=== PATIENT | female | born 1995 | race Caucasian/White ===

== ENCOUNTER 2020-04-19 23:38 | Inpatient (IN) | payer BC ==
[~2020-04-19] VITALS: Ht 167.6 cm; Wt 93.6 kg
--- NOTE | 2020-04-19 23:45 | NUR ---
Pt arrived on unit ambulatory, escorted by and with complaints of possible SROM. Pt reports occasional contractions, denies any vaginal bleeding and reports normal movement. EFM and toco monitors started. Vital signs WNL. SVE by this RN / with positive amnio-trace and large amount of clear fluid on exam. Information reviewed with Dr. Hansen. FHR tracing reviewed. Orders for labor admission received.
[2020-04-20] VITALS (36 sets, daily range): BP systolic 95–139; BP diastolic 54–87; PULSE 54–96; TEMP 97.2–98.8
[2020-04-20] MEDS ORDERED: LEXAPRO 10MG10 MG PO (00:07)
[2020-04-20] MEDS ORDERED: PRENATAL (00:07)
[2020-04-20 02:16] LABS: BASO # 0.1 (0.0-0.2); BASO % 0.5 % (0.0-2.0); EOS # 0.2 (0.0-0.7); EOS % 1.5 % (0-4.0); GRAN # 8.2 (1.4-6.5); GRAN % 69.5 % (42.2-75.2); HEMATOCRIT 37.7 % (37.0-47.0); HEMOGLOBIN 12.8 g/dl (12.5-16.0); LYMPH # 2.4 (1.2-3.4); LYMPH % 20.6 % (20.0-51.0); MEAN CELL VOLUME 92 fl (80.0-100.0); MEAN CORPUSCULAR HEMOGLOBIN 31 pg (27.0-31.0); MEAN CORPUSCULAR HGB CONC 34 g/dl (33.0-37.0); MEAN PLATELET VOLUME 11.7 fl (7.4-10.4); MONO # 0.9 (0.1-0.6); MONO % 7.5 % (1.7-9.3); PLATELET COUNT 174 K/mm3 (130-400); RED BLOOD COUNT 4.09 M/mm3 (4.10-5.30); REDCELL DISTRIBUTION WIDTH-CV 13.6 % (11.5-14.5)
--- NOTE | 2020-04-20 04:10 | NUR ---
0412- Pt sitting up on the edge of the bed for epidural placement. BRYCE Espinal at the bedside. 0414- SPO2 monitor started. EFM tracing maternal HR as coorelates with SPO2 monitor. 0423- Single shot given per BRYCE Espinal. See anesthesia records for details. 0425- Test dose given per BRYCE Espinal. See anesthesia records for details. 0429- Assisted pt back to supine position with left wedge. EFM and toco monitors adjusted. 0439- BRYCE Espinal at the bedside to reevaluate epidural and decision for replacement. 0440- Pt sitting up on the edge of the bed for replacment epidural. SPO2 monitor started. EFM tracing maternal HR as coorelates with SPO2 monitor. 0452- Test dose given per BRYCE Espinal. See anesthesia records for details. 0458- Assisted pt back to supine position with left wedge. EFM and toco monitors adjusted.
--- NOTE | 2020-04-20 07:30 | NUR ---
0730-BRYCE Espinal to patient room to dose epdiural. Patient rates contracction in lower right groin and lower back 5/10 with [employer] button usage. 0802-Dr. Ratliff on unit. Reviews strip and chart. In to see patient. 0805-SVE by . Repositioned back to [facility]. Dr. Ratliff gives order to recheck in about an hour and leave pitocin at 4 unless not continuing to make change in one hour.
--- NOTE | 2020-04-20 08:45 | NUR ---
0845-C.Ramsey,BRYCE notified of patient breathing through contractions and continues to have pain in right side. 0850-C.BRYCE Mustafa to patient oroom to evaluate and dose patient, see anesthesia record. 0855-SVE /0, Repositoined RL with LLE in [facility].
--- NOTE | 2020-04-20 10:00 | NUR ---
1000-Patient complete and +[address] Ratliff. 1010-Begin pushing with patient, moves vertex really well. 1015-Updated Dr. Ratliff and requested for delivery. 1028-Dr. Ratliff to room set up for delivery. 1035-Spontaneous delivery of head immediately followed by body attended by Dr. Ratliff. Viable female infant to mothers abdomen. Care of assumed by SILAS Zhou apgars 8/9. Cord clamped by MD and cut by FOB. 1041-Spontaneous delivery of intact placenta, lochia moderate, fundal massage firm. Pitocin bolus per MD orders and protocol. VO for IM methergine, obtained and given. Irregular perineal and vaginal laceration repaired by MD. EBL 400ml. Munoz placed by MD for perineal/labial swelling. Ice applied. Updated on safety and plan of care.
--- NOTE | 2020-04-20 14:15 | NUR ---
Patient assisted to edge of bed. Denies dizziness or lightheadedness. Kamilah care provided, pads changed, clean gown on, and ice pack to perineum. Transfers to with assist x2. To room 216. Oriented to room and plan of care. Patient verbalizes understanding and denies questions or needs at this time. Call light within reach.
[2020-04-21 03:30] VITALS: BP 110/65; PULSE 85; TEMP 97.6
[2020-04-21 06:55] VITALS: BP 107/51; PULSE 85; TEMP 97.5
[2020-04-21 16:50] VITALS: BP 101/64; PULSE 87; TEMP 97.8
[2020-04-21 20:15] VITALS: BP 113/56; PULSE 71; TEMP 98
[2020-04-22 07:56] VITALS: BP 125/67; PULSE 65; TEMP 97.9
[2020-04-22] MEDS ORDERED: MOTRIN 600600 MG/TAB PO (09:37)
== END 2020-04-22 12:05 | disposition home or self-care (01) | DRG 807 ==
LOC: LDRO 23:38 → LDR 04-20 00:23 → OB 04-20 14:15
PROVIDERS: Student in an Organized Health Care Education/Training Program; ADMIT Obstetrics & Gynecology
PROC: 10E0XZZ Delivery of Products of Conception, External Approach (ICD-10-PCS; principal; 2020-04-20)
PROC: 0KQM0ZZ Repair Perineum Muscle, Open Approach (ICD-10-PCS; 2020-04-20)
DX: O99.344 Other mental disorders complicating childbirth (principal); Z37.0 Single live birth; F32.9 Major depressive disorder, single episode, unspecified; O70.1 Second degree perineal laceration during delivery; Z3A.38 38 weeks gestation of pregnancy; O75.89 Other specified complications of labor and delivery; R33.9 Retention of urine, unspecified
CPT/HCPCS: J2210; J2405; J2590; J2791; J2795; J7120

== ENCOUNTER → 2020-05-04 | Outpatient (CLI) | payer BC ==
[~2020-05-04] MED LIST: LEXAPRO 10MG10 MG PO; MOTRIN 600600 MG/TAB PO; PRENATAL
--- NOTE | 2020-05-04 15:42 | NUR ---
Pt, Lois Ballard, presents for outpatient consult with two week old baby girl Yazmin Ballard, because Yazmin is not latching to the breast. They are accompanied by her spouse, Haley Ballard. Yazmin was born on [birth year] and weighed 7#9oz (3430 gms). She did not latch in the hospital so pt was advised on pumping and bottle feeding. Today Yazmin weighs 7#14.4oz. She has been receiving 2-3oz EBM every 2-4 hours by bottle. Voids and stools are WNL. Lois is pumping 180+oz every 3-4 hours. Pt was advised on improved posture and support of infant and breast. Yazmin was eager to eat and with the use of cross cradle latch was easy to obtain. removed so pt could latch with less assistance and Yazmin latched well again. Frequent swallows and gulping noted. After ~10 minutes of nursing Yazmin releases the breast. Post weight gain shows an increase of 3.1oz. Yazmin is offered the second breast but purses her lips in refusal. Review of position, supports and angles provided. Pt feels more confident with latching. POC: Breastfeed ad neli. F/U: As scheduled with Dr. Lee at next appt. Questions invited and answered.
== END ==
LOC: LAC 10:03
DX: Z39.1 Encounter for care and examination of lactating mother (principal); Z71.89 Other specified counseling